=== PATIENT | male | born 1995 | race Asian ===

== ENCOUNTER 2021-11-20 11:25 | Emergency (ER) | payer BC ==
[~2021-11-20] VITALS: Ht 167.6 cm; Wt 65.0 kg
[2021-11-20] MEDS ORDERED: CIPHCO RIGHT EAR (13:38)
[2021-11-20] MEDS ORDERED: IBUP-2028 MT (13:38)
[2021-11-20] MEDS ORDERED: IBUPROFEN 400MG TABLET PO ONE (13:45)
[2021-11-20 14:04] VITALS: BP 134/78
== END 2021-11-20 14:13 | disposition home or self-care (01) ==
LOC: ER 11:25
DX: H60.501 Unspecified acute noninfective otitis externa, right ear (principal)
CPT/HCPCS: 99282